=== PATIENT | female | born 1950 | race Caucasian/White ===

== ENCOUNTER → 2022-06-01 13:17 | Outpatient (CLI) | payer OTHER, SELFPAY | PROVIDERS: Referring Provider Internal Medicine; Visit Provider Internal Medicine | DX: Z92.29 Personal history of other drug therapy (principal); Z92.3 Personal history of irradiation; Z85.3 Personal history of malignant neoplasm of breast; Z12.31 Encounter for screening mammogram for malignant neoplasm of breast ==

== ENCOUNTER → 2022-06-02 13:17 | Outpatient (CLI) | payer OTHER, SELFPAY ==
--- NOTE | 2022-06-02 | DI.MG.S_ITS ---
BILATERAL DIGITAL DIAGNOSTIC MAMMOGRAM 3D/2D: 06/02/2022 CLINICAL: Left breast soreness. Comparison is made to exams dated: 06/24/2021 mammogram, 12/09/2019 mammogram, 10/11/2018 mammogram, and 09/07/2017 mammogram - [facility]. The tissue of both breasts is heterogeneously dense. This may lower the sensitivity of mammography. There is a benign area of calcified fat necrosis in the left breast at 8 o'clock in the posterior depth. There also is a biopsy clip in the right breast at 10 o'clock in the posterior depth. No significant masses, calcifications, or other findings are seen in either breast. Specifically, no finding to explain the patient's left breast soreness. IMPRESSION: BENIGN Mammograms are stable. There is no abnormality seen in the left breast to correspond with the pain. There is no mammographic evidence of malignancy. Return to annual mammogram screening schedule is recommended. Findings and recommendations were conveyed to the patient at time of exam. This exam was interpreted at Station ID: [id number]. NOTE: For mammograms, a report in lay terms will be sent to the patient. Approximately 15% of breast malignancies will not be visualized mammographically. In the management of a palpable breast mass, a negative mammogram must not discourage biopsy of a clinically suspicious lesion. Electronically Signed By: Nikki [email or web address]/:06/02/2022 14:00:05 Entry: - 06/03/2022 09:31:06 letter sent: Normal Exam ACR BI-RADS Category 2: Benign Finding(s) 3342F
== END ==
PROVIDERS: PCP Physician Assistant; Referring Provider Internal Medicine; Visit Provider Internal Medicine
DX: N64.4 Mastodynia (principal); Z85.3 Personal history of malignant neoplasm of breast; M85.80 Other specified disorders of bone density and structure, unspecified site; Z92.29 Personal history of other drug therapy
CPT/HCPCS: 77066; G0279